=== PATIENT | female | born 1985 | race Caucasian/White ===

== ENCOUNTER 2021-11-01 05:56 | Day surgery (SDC) | payer OTHER ==
[2021-10-31 10:17] VITALS: BMI 30.2
[2021-11-01] MEDS ORDERED: Levofloxacin 500 mg/D5W 100 ml Premix Bag ONE (07:19)
[2021-11-01] MEDS ORDERED: Acetaminophen 500 MG TAB ONE (07:21)
[2021-11-01] MEDS ORDERED: Ketorolac Tromethamine 30 MG/ML VIAL ONE (07:21)
[2021-11-01] MEDS ORDERED: Bupivacaine PF 0.5% 30 ML VIAL ONE (09:36)
[2021-11-01] MEDS ORDERED: Lidocaine 1% w/Epinephrine 1:100K 20 ML VIAL ONE (09:36)
[2021-11-01] MEDS ORDERED: Fentanyl 250 MCG/5 ML VIAL ONE (09:37)
[2021-11-01] MEDS ORDERED: Midazolam HCl 2 mg/2 ml Vial ONE ×2 (09:37→09:43)
[2021-11-01] MEDS ORDERED: Scopolamine 1.5 mg/72 hour Patch ONE (09:39)
[2021-11-01] MEDS ORDERED: Dexamethasone 20 MG/5 ML VIAL ONE (09:51)
[2021-11-01] MEDS ORDERED: Lidocaine 1% PF 5 ML VIAL ONE (09:51)
[2021-11-01] MEDS ORDERED: Rocuronium Bromide 10 MG/ML (10ML VIAL) ONE (09:51)
[2021-11-01] MEDS ORDERED: Ondansetron PF 4 MG/2 ML Vial ONE (09:51)
[2021-11-01] MEDS ORDERED: PROPOFOL 200 MG/20 ML VIAL ONE (09:51)
[2021-11-01] MEDS ORDERED: Fentanyl 100 MCG/2 ML VIAL ONE (11:07)
== END 2021-11-01 12:28 | disposition home or self-care (01) ==
LOC: SDC 05:56
PROVIDERS: ATTEND Specialist
PROC: 0FT44ZZ Resection of Gallbladder, Percutaneous Endoscopic Approach (ICD-10-PCS; principal; 2021-11-01)
DX: K80.12 Calculus of gallbladder with acute and chronic cholecystitis without obstruction (principal); F17.210 Nicotine dependence, cigarettes, uncomplicated; K21.9 Gastro-esophageal reflux disease without esophagitis; Z88.0 Allergy status to penicillin; Z98.51 Tubal ligation status
CPT/HCPCS: 88304; C1713; J1100; J1885; J1956; J2250; J2405; J2704; J3010; S0020